=== PATIENT | male | born 1975 | race Two or more races ===

== ENCOUNTER → 2017-10-27 | Outpatient (CLI) | payer BC ==
--- NOTE | 2017-10-27 11:47 | XR ---
EXAMINATION TYPE: XR lumbar spine 2 or 3V DATE OF EXAM: 10/27/2017 COMPARISON: NONE HISTORY: Paresthesia, left leg numbness TECHNIQUE: Three-view lumbar spine FINDINGS: Minimal narrowing of the L5-S1 disc height is not excluded. Remaining disc heights are pres erved. Vertebral body heights are preserved. Alignment is normal. IMPRESSION: 1. Possible minimal degenerative disc change L5-S1.
== END | disposition home or self-care (01) ==
LOC: RADXRYALE 11:08
PROVIDERS: ATTEND Internal Medicine
DX: R20.2 Paresthesia of skin (principal)
CPT/HCPCS: 72100

== ENCOUNTER 2017-11-16 20:51 | Emergency (ER) | payer BC ==
[2017-11-16 20:59] VITALS: RESP 18
--- NOTE | 2017-11-16 21:19 | ED ---
Chest Pain HPI - General Chief Complaint: Chest Pain Stated Complaint: Chest Pain Time Seen by Provider: 11/16/17 21:17 Source: patient Mode of arrival: wheelchair Limitations: no limitations - History of Present Illness Initial Comments: This patient is a 42-year-old man who presents to be evaluated for chest pain. The patient states that he was trying to rest, he was lying down around 5:30 PM when he noticed a sensation in the left anterior axillary line that he described as feeling "like a stitch" or pain that comes on after a run. He states that it was there about half an hour and then he noticed that his left arm felt like it was "going to sleep." The patient states that he did take 2 of the baby aspirin and trying to rest but he wasn't feeling much better. After that he also started to feel a little bit dizzy. The patient does note that the chest pain was somewhat intermittent and it would come on for maybe up to an hour and then go away but it has recurred and is currently there, at a level of 3 out of 10. He has not noted any factors that seem to make it better or worse. Other than the symptoms, patient is not having anything else going on. He denies diaphoresis, dyspnea, palpitations, nausea or vomiting. Patient denies previous cardiac history or diabetes. He has not been a smoker. Patient 's father did have a heart attack but this was proximal 5 years ago when he was in his 60s. MD Complaint: chest pain Onset/Timin -: hour(s) Onset: during rest Pain Location: left chest Pain Radiation: none Severity: mild Severity scale (1-10): 3 Quality: other ("like a stitch") Consistency: intermittent Improves With: nothing Worsens With: nothing Other Symptoms: other (dizzy) Treatments Prior to Arrival: aspirin (162 mg) - Related Data Home Medications Medication Instructions Recorded Confirmed Aspirin EC [Ecotrin Low Dose] 162 mg PO DAILY 11/16/17 11/16/17 Atorvastatin [Lipitor] 20 mg PO DAILY 11/16/17 11/16/17 Calcium Polycarbophil [Fibercon] 1,250 mg PO DAILY 11/16/17 11/16/17 Enalapril/Hydrochlorothiazide 1 tab PO DAILY 11/16/17 11/16/17 [Enalapril-Hctz 10-25 mg Tablet] Levothyroxine Sodium [Synthroid] 75 mcg PO DAILY 11/16/17 11/16/17 Allergies Allergy/AdvReac Type Severity Reaction Status Date / Time No Known Allergies Allergy Verified 11/16/17 21:44 Review of Systems ROS Statement: Those systems with pertinent positive or pertinent negative responses have been documented in the HPI. ROS Other: All systems not noted in ROS Statement are negative. Constitutional: Denies: fever, chills, weakness Respiratory: Denies: cough, dyspnea Cardiovascular: Reports: as per HPI, chest pain. Denies: palpitations, orthopnea, edema, syncope Gastrointestinal: Denies: abdominal pain, nausea, vomiting Genitourinary: Denies: dysuria, hematuria Musculoskeletal: Denies: back pain Skin: Denies: rash Neurological: Reports: paresthesias (Left arm). Denies: headache, weakness, numbness Hematological/Lymphatic: Denies: easy bleeding EKG Findings - EKG Results: EKG: interpreted by JULIAN COATES, sinus rhythm (Rate approximate 79 bpm), normal axis, normal QRS, normal ST/T, no acute changes - SC, Pacemaker, Normal: Normal tracing: normal tracing Past Medical History Past Medical History: Hyperlipidemia, Hypertension, Sleep Apnea/CPAP/BIPAP, Thyroid Disorder History of Any Multi-Drug Resistant Organisms: None Reported Past Surgical History: Hernia Repair Past Psychological History: No Psychological Hx Reported Smoking Status: Never smoker Past Alcohol Use History: None Reported Past Drug Use History: None Reported General Exam Limitations: no limitations General appearance: alert, in no apparent distress Head exam: Present: atraumatic, normocephalic Eye exam: Present: normal appearance. Absent: scleral icterus, conjunctival injection ENT exam: Present: normal oropharynx Neck exam: Present: normal inspection Respiratory exam: Present: normal lung sounds bilaterally. Absent: respiratory distress, wheezes, rales, rhonchi, stridor, chest wall tenderness Cardiovascular Exam: Present: regular rate, normal rhythm, normal heart sounds. Absent: systolic murmur, diastolic murmur, rubs, gallop GI/Abdominal exam: Present: soft. Absent: distended, tenderness, guarding, rebound, rigid, mass, pulsatile mass Extremities exam: Present: normal inspection, normal capillary refill. Absent: pedal edema, calf tenderness Back exam: Present: normal inspection. Absent: CVA tenderness (R), CVA tenderness (L) Neurological exam: Present: alert Skin exam: Present: warm, dry, intact, normal color. Absent: rash Course Vital Signs 11/16/17 11/16/17 11/16/17 20:56 22:07 23:00 Temperature 98.8 F Pulse Rate 102 H 110 H 85 Respiratory 18 18 18 Rate Blood Pressure 143/99 128/68 118/81 O2 Sat by Pulse 97 98 98 Oximetry 11/17/17 02:06 Temperature 97.8 F Pulse Rate 66 Respiratory 18 Rate Blood Pressure 141/67 O2 Sat by Pulse 98 Oximetry Disposition Clinical Impression: Chest pain Disposition: HOME SELF-CARE Condition: Good Instructions: Chest Pain (ED) Is patient prescribed a controlled substance at d/c from ED?: No Referrals: Judy Garcia MD [Primary Care Provider] - 1-2 days
[2017-11-16 21:33] LABS: Basophils # (A) 0.1 k/uL (0-0.2); Basophils % (A) 1 %; Eosinophils # (A) 0.2 k/uL (0-0.7); Eosinophils % (A) 3 %; HCT 47.1 % (39.0-53.0); HGB 16.1 gm/dL (13.0-17.5); Lymphocytes # (A) 2.3 k/uL (1.0-4.8); Lymphocytes % (A) 29 %; MCHC 34.2 g/dL (31.0-37.0); MCV 84.8 fL (80.0-100.0); Mean Platelet Volume 6.6; Monocytes # (A) 0.6 k/uL (0-1.0); Monocytes % (A) 8 %; Neutrophils # (A) 4.7 k/uL (1.3-7.7); Neutrophils % (A) 58 %; Platelet Count 285 k/uL (150-450); RBC 5.56 m/uL (4.30-5.90); RDW 13.3 % (11.5-15.5); WBC 8.1 k/uL (3.8-10.6)
--- NOTE | 2017-11-16 21:44 | XR ---
EXAMINATION TYPE: XR chest 2V DATE OF EXAM: 11/16/2017 COMPARISON: NONE HISTORY: Chest pain TECHNIQUE: Frontal and lateral views of the chest are obtained. FINDINGS: Heart and mediastinum are normal. Lungs are clear. Diaphragm is normal. There are chest le ads. Bony thorax appears normal. IMPRESSION: Normal chest
[2017-11-16 21:45] LABS: ALT 45 U/L (21-72); AST 31 U/L (17-59); Alkaline Phosphatase 74 U/L (38-126); Anion Gap 18 mmol/L; Blood Urea Nitrogen 18 mg/dL (9-20); Calcium 9.9 mg/dL (8.4-10.2); Carbon Dioxide 27 mmol/L (22-30); Chloride 99 mmol/L (98-107); Glucose 90 mg/dL (74-99); Magnesium 2.1 mg/dL (1.6-2.3); Potassium 3.7 mmol/L (3.5-5.1); Sodium 144 mmol/L (137-145); Total Bilirubin 0.4 mg/dL (0.2-1.3); Total Protein 7.8 g/dL (6.3-8.2)
[2017-11-16 21:47] LABS: D-Dimer <0.17 mg/L FEU (<0.60); Partial Thromboplastin Time 25.6 sec (22.0-30.0); Prothrombin Time 10.1 sec (9.0-12.0)
[2017-11-16] MEDS ORDERED: ASPIRIN 81 MG PO STA (21:48)
[2017-11-16 21:58] LABS: Creatine Kinase 107 U/L (55-170)
[2017-11-16 22:09] LABS: Creatine Kinase MB 0.4 ng/mL (0.0-2.4); Troponin I <0.012 ng/mL (0.000-0.034)
[2017-11-17 02:07] VITALS: BP 141/67; PULSE 66; TEMP 97.8
== END 2017-11-17 02:08 | disposition home or self-care (01) ==
LOC: EC 20:51
DX: R07.9 Chest pain, unspecified (principal); R42 Dizziness and giddiness; E78.5 Hyperlipidemia, unspecified; I10 Essential (primary) hypertension; G47.30 Sleep apnea, unspecified; E07.9 Disorder of thyroid, unspecified; Z99.89 Dependence on other enabling machines and devices; Z79.82 Long term (current) use of aspirin; Z79.899 Other long term (current) drug therapy
CPT/HCPCS: 36415; 71046; 80053; 82550; 82553; 83735; 84484; 85025; 85379; 85610; 85730; 93005; 99285

== ENCOUNTER 2019-08-12 09:21 | Observation (INO) | payer BC ==
[2019-08-12] MEDS ORDERED: HEPARIN SODIUM,PORCINE 5,000 UNIT/ML 1 ML VIAL IV STA (09:33)
[2019-08-12] MEDS ORDERED: DILTIAZEM DRIP BOLUS FROM BAG 1 MG SOLN IV ONE (09:43)
[2019-08-12] MEDS ORDERED: HEPARIN SOD,PORK IN 0.45% NACL 25,000 UNIT in 0.45% NACL 1 250ML.BAG IV SCH (09:45)
--- NOTE | 2019-08-12 09:45 | ED ---
Arrhythmia/Palpitations HPI - General Source: patient, EMS, RN notes reviewed Mode of arrival: EMS Limitations: no limitations <Barrie Lacey - Last Filed: 08/12/19 10:53> <Crista Bee - Last Filed: 08/17/19 14:15> - General Chief Complaint: Arrhythmia/Palpitations Stated Complaint: AFIB Time Seen by Provider: 08/12/19 09:22 - History of Present Illness Initial Comments: This a 44-year-old male presents emergency department via EMS from urgent care chief complaint of A. fib. Patient states that he developed some palpitations and chest pressure yesterday into the night. Patient states that he does have h istory of hyperlipidemia and hypertension. Patient has no history of A. fib. Patient was given aspirin by urgent care. He states that he just feels his heart is racing feels very tired. Patient denies any current headache, blurred vision, back pain, abdominal pain. (Barrie Lacey) - Related Data Home Medications Medication Instructions Recorded Confirmed Aspirin EC [Ecotrin Low Dose] 162 mg PO HS 11/16/17 08/12/19 Levothyroxine Sodium [Synthroid] 75 mcg PO DAILY 11/16/17 08/12/19 Aspirin [Children's Aspirin] 364 mg PO ONCE PRN 08/12/19 08/12/19 Triamcinolone 0.1% Cream [Kenalog 1 applic TOPICAL BID PRN 08/12/19 08/12/19 0.1% Cream] Previous Rx's Medication Instructions Recorded Apixaban [Eliquis] 5 mg PO BID #60 tab 08/13/19 Atorvastatin [Lipitor] 40 mg PO DAILY #30 tab 08/13/19 Metoprolol Tartrate [Lopressor] 25 mg PO BID #60 tab 08/13/19 Allergies Allergy/AdvReac Type Severity Reaction Status Date / Time No Known Allergies Allergy Verified 08/12/19 12:56 Review of Systems ROS Other: All systems not noted in ROS Statement are negative. <Barrie Lacey - Last Filed: 08/12/19 10:53> ROS Other: All systems not noted in ROS Statement are negative. <Crista Bee - Last Filed: 08/17/19 14:15> ROS Statement: Those systems with pertinent positive or pertinent negative responses have been documented in the HPI. Past Medical History Past Medical History: Hyperlipidemia, Hypertension, Sleep Apnea/CPAP/BIPAP, Thyroid Disorder History of Any Multi-Drug Resistant Organisms: None Reported Past Surgical History: Hernia Repair Past Psychological History: No Psychological Hx Reported Smoking Status: Never smoker Past Alcohol Use History: None Reported Past Drug Use History: None Reported <Barrie Lacey - Last Filed: 08/12/19 10:53> General Exam Limitations: no limitations General appearance: alert, in no apparent distress Head exam: Present: atraumatic, normocephalic, normal inspection Eye exam: Present: normal appearance, PERRL, EOMI. Absent: scleral icterus, conjunctival injection, periorbital swelling ENT exam: Present: normal exam, normal oropharynx, mucous membranes moist Neck exam: Present: normal inspection. Absent: tenderness, meningismus, lymphadenopathy Respiratory exam: Present: normal lung sounds bilaterally. Absent: respiratory distress, wheezes, rales, rhonchi, stridor Cardiovascular Exam: Present: tachycardia, irregular rhythm, normal heart sounds. Absent: regular rate, normal rhythm, systolic murmur, diastolic murmur, rubs, gallop, clicks GI/Abdominal exam: Present: soft, normal bowel sounds. Absent: distended, tenderness, guarding, rebound, rigid Extremities exam: Absent: pedal edema Neurological exam: Present: alert, oriented X3, CN II-XII intact Skin exam: Present: warm, dry, intact, normal color. Absent: rash <Barrie Lacey M - Last Filed: 08/12/19 10:53> Course Vital Signs 08/12/19 08/12/19 08/12/19 09:27 09:37 10:06 Temperature 98.1 F 98.2 F Pulse Rate 156 H 101 H Pulse Rate [ 161 H Sitting Peanut Blancher] Respiratory 18 18 Rate Blood Pressure 129/105 128/88 Blood Pressure [Right Arm] O2 Sat by Pulse 98 95 Oximetry 08/12/19 08/12/19 08/12/19 10:44 11:30 11:41 Temperature 98.3 F 97.6 F 98.4 F Pulse Rate 95 98 Pulse Rate [ 130 H Sitting Peanut Blancher] Respiratory 18 18 18 Rate Blood Pressure 109/82 101/80 Blood Pressure 124/87 [Right Arm] O2 Sat by Pulse 100 98 Oximetry EKG Findings - EKG Comments: EKG Findings:: EKG performed and 9:25 A. fib with RVR rate of 133 QRS 82 QT/QTC 264/392 <Barrie Lacey - Last Filed: 08/12/19 10:53> Medical Decision Making - Lab Data Result diagrams: 08/12/19 09:34 08/12/19 09:34 <Barrie Lacey - Last Filed: 08/12/19 10:53> - Lab Data Result diagrams: 08/13/19 05:46 08/13/19 05:46 <Crista Bee - Last Filed: 08/17/19 14:15> - Medical Decision Making Patient was admitted to telemetry for A. fib RVR will have cardiology consult. Absent, EKG and chest x-ray were reviewed. (Barrie Lacey) I was available for consultation in the emergency department. The history and physical exam were done by the midlevel provider. I was consulted for this patients care. I reviewed the case with the midlevel provider and based on their presentation of the patient, I agree with the assessment, medical decision making and plan of care as documented. I evaluated the patient myself. He is resting comfortably on the cardizem gtt. I discussed the diagnosis, differential and treatment plan. Patient agreed to hospital admission with cardiology consult. He had no contraindications to heparin. The patient was admitted to [facility] and spoke with accepting doctor, Dr. Mcadams. Chart was dictated using [employer] dictation software. Attempts were made to correct any dictation errors however some typographical errors may persist. (Crista Bee) - Lab Data Lab Results 08/12/19 08/12/19 08/12/19 Range/Units 09:34 09:34 09:34 WBC 7.5 (3.8-10.6) k/uL RBC 5.39 (4.30-5.90) m/uL Hgb 15.6 (13.0-17.5) gm/dL Hct 46.6 (39.0-53.0) % MCV 86.4 (80.0-100.0) fL MCH 29.0 (25.0-35.0) pg MCHC 33.6 (31.0-37.0) g/dL RDW 13.2 (11.5-15.5) % Plt Count 290 (150-450) k/uL Neutrophils % 61 % Lymphocytes % 26 % Monocytes % 6 % Eosinophils % 4 % Basophils % 1 % Neutrophils # 4.6 (1.3-7.7) k/uL Lymphocytes # 2.0 (1.0-4.8) k/uL Monocytes # 0.5 (0-1.0) k/uL Eosinophils # 0.3 (0-0.7) k/uL Basophils # 0.1 (0-0.2) k/uL PT 10.6 (9.0-12.0) sec INR 1.0 (<1.2) APTT 26.4 (22.0-30.0) sec Sodium 140 (137-145) mmol/L Potassium 4.2 (3.5-5.1) mmol/L Chloride 106 (98-107) mmol/L Carbon Dioxide 27 (22-30) mmol/L Anion Gap 7 mmol/L BUN 21 H (9-20) mg/dL Creatinine 1.13 (0.66-1.25) mg/dL Est GFR (CKD-EPI)AfAm >90 (>60 ml/min/1.73 sqM) Est GFR (CKD-EPI)NonAf 79 (>60 ml/min/1.73 sqM) Glucose 99 (74-99) mg/dL Calcium 9.4 (8.4-10.2) mg/dL Magnesium 2.3 (1.6-2.3) mg/dL Total Bilirubin 0.6 (0.2-1.3) mg/dL AST 25 (17-59) U/L ALT 24 (4-49) U/L Alkaline Phosphatase 60 (38-126) U/L Troponin I (0.000-0.034) ng/mL NT-Pro-B Natriuret Pep pg/mL Total Protein 7.2 (6.3-8.2) g/dL Albumin 4.4 (3.5-5.0) g/dL TSH (0.465-4.680) mIU/L Free T4 (0.78-2.19) ng/dL 08/12/19 08/12/19 08/12/19 Range/Units 09:34 09:34 09:34 WBC (3.8-10.6) k/uL RBC (4.30-5.90) m/uL Hgb (13.0-17.5) gm/dL Hct (39.0-53.0) % MCV (80.0-100.0) fL MCH (25.0-35.0) pg MCHC (31.0-37.0) g/dL RDW (11.5-15.5) % Plt Count (150-450) k/uL Neutrophils % % Lymphocytes % % Monocytes % % Eosinophils % % Basophils % % Neutrophils # (1.3-7.7) k/uL Lymphocytes # (1.0-4.8) k/uL Monocytes # (0-1.0) k/uL Eosinophils # (0-0.7) k/uL Basophils # (0-0.2) k/uL PT (9.0-12.0) sec INR (<1.2) APTT (22.0-30.0) sec Sodium (137-145) mmol/L Potassium (3.5-5.1) mmol/L Chloride (98-107) mmol/L Carbon Dioxide (22-30) mmol/L Anion Gap mmol/L BUN (9-20) mg/dL Creatinine (0.66-1.25) mg/dL Est GFR (CKD-EPI)AfAm (>60 ml/min/1.73 sqM) Est GFR (CKD-EPI)NonAf (>60 ml/min/1.73 sqM) Glucose (74-99) mg/dL Calcium (8.4-10.2) mg/dL Magnesium (1.6-2.3) mg/dL Total Bilirubin (0.2-1.3) mg/dL AST (17-59) U/L ALT (4-49) U/L Alkaline Phosphatase (38-126) U/L Troponin I <0.012 (0.000-0.034) ng/mL NT-Pro-B Natriuret Pep 686 pg/mL Total Protein (6.3-8.2) g/dL Albumin (3.5-5.0) g/dL TSH 5.630 H (0.465-4.680) mIU/L Free T4 1.16 (0.78-2.19) ng/dL Critical Care Time Critical Care Time: Yes Total Critical Care Time: 35 <Barrie Lacey - Last Filed: 08/12/19 10:53> Critical Care Time: Total 35 minutes of critical care time used initially evaluated patient, reviewed past medical history, discussed with EMS and patient. Labs EKG and chest x-ray ordered. Patient's found to be in A. fib with RVR. Patient was started on Cardizem, heparin. Patient's case discussed with admitting physician. Patient will be admitted with cardiology consult. (Barrie Lacey) Disposition <Barrie Lacey - Last Filed: 08/12/19 10:53> <Crista Bee - Last Filed: 08/17/19 14:15> Clinical Impression: Atrial fibrillation with RVR, New onset a-fib Disposition: ADMITTED IP TO THIS HOSP Condition: Fair
[2019-08-12 09:49] LABS: Basophils # (A) 0.1 k/uL (0-0.2); Basophils % (A) 1 %; Eosinophils # (A) 0.3 k/uL (0-0.7); Eosinophils % (A) 4 %; HCT 46.6 % (39.0-53.0); HGB 15.6 gm/dL (13.0-17.5); Lymphocytes % (A) 26 %; MCHC 33.6 g/dL (31.0-37.0); MCV 86.4 fL (80.0-100.0); Monocytes # (A) 0.5 k/uL (0-1.0); Monocytes % (A) 6 %; Neutrophils # (A) 4.6 k/uL (1.3-7.7); Neutrophils % (A) 61 %; Platelet Count 290 k/uL (150-450); RBC 5.39 m/uL (4.30-5.90); RDW 13.2 % (11.5-15.5); WBC 7.5 k/uL (3.8-10.6)
--- NOTE | 2019-08-12 09:59 | XR ---
EXAMINATION TYPE: XR chest 2V DATE OF EXAM: 08/12/2019 COMPARISON: Chest x-ray November 16, 2017 HISTORY: History of atrial fibrillation with chest palpitations. TECHNIQUE: Frontal and lateral views of the chest are obtained. FINDINGS: Overlying EKG leads are redemonstrated. There is no focal air space opacity, pleural effusi on, or pneumothorax seen. The cardiac silhouette size remains within normal limits. The osseous st ructures are intact. IMPRESSION: No acute cardiopulmonary process. No significant change from prior
[2019-08-12 10:00] LABS: Partial Thromboplastin Time 26.4 sec (22.0-30.0); Prothrombin Time 10.6 sec (9.0-12.0)
[2019-08-12] MEDS: DILTIAZEM 125 MG in SODIUM CHLORIDE 0.9% 100 ML IV SCH (10:05)
[2019-08-12 10:07] LABS: ALT 24 U/L (4-49); AST 25 U/L (17-59); African American GFR (CKD) >90 (>60 ml/min/1.73 sqM); Albumin 4.4 g/dL (3.5-5.0); Alkaline Phosphatase 60 U/L (38-126); Anion Gap 7 mmol/L; Blood Urea Nitrogen 21 mg/dL (9-20); Calcium 9.4 mg/dL (8.4-10.2); Carbon Dioxide 27 mmol/L (22-30); Chloride 106 mmol/L (98-107); Glucose 99 mg/dL (74-99); Magnesium 2.3 mg/dL (1.6-2.3); Non-African American GFR(CKD) 79 (>60 ml/min/1.73 sqM); Potassium 4.2 mmol/L (3.5-5.1); Sodium 140 mmol/L (137-145); Total Bilirubin 0.6 mg/dL (0.2-1.3); Total Protein 7.2 g/dL (6.3-8.2)
[2019-08-12] MEDS ORDERED: NITROGLYCERIN SL TABS 0.4 MG TAB SUBLINGUAL PRN (10:56)
--- NOTE | 2019-08-12 13:10 | P.CRDCN ---
History of Present Illness Consult date: 08/12/19 Requesting physician: Gricelda Perales Reason for Consult (text): new onset atrial fibrillation with RVR Chief complaint: palpitations, chest heaviness History of present illness: This is a pleasant 44-year-old gentleman with past medical history of hypertension, hyperlipidemia, sleep apnea for which he uses CPAP and hypothyroidism. He is a nonsmoker and nondrinker. Does consume about 2 glasses of tea daily. Presented to urgent care with complaints of ongoing palpitations since last night with complaints of chest heaviness. Upon presentation he was found to have atrial fibrillation with rapid ventricular response and was referred to the emergency department. EKG on admission showed atrial fibrillation with heart rate of 133. Patient denies previous history of atrial fibrillation but has had palpitations in the past that lasted longer than seconds at a time. Chest x-ray on admission showed no acute cardiopulmonary process, no significant change from prior. Coronary the patient he did have cardiac workup done a few years back with stress testing which was normal. He is unsure of which doctor he followed with at that time. He has a family history of CAD but no history of premature CAD. Labs on admission showed a normal CBC, normal electrolytes, BUN of 21, creatinine 1.13, troponin negative 1 and an NT proBNP of 686. At the time of My Examination, Patient Denies Compl aints of chest heaviness. He denies complaints of dizziness, lightheadedness, shortness of breath, orthopnea, PND or edema. He's had no syncope or near syncope. Past Medical History Past Medical History: Hyperlipidemia, Hypertension, Sleep Apnea/CPAP/BIPAP, Thyroid Disorder History of Any Multi-Drug Resistant Organisms: None Reported Past Surgical History: Hernia Repair Past Anesthesia/Blood Transfusion Reactions: No Reported Reaction, Postoperative Nausea & Vomiting (PONV) Additional Past Anesthesia/Blood Transfusion Reaction / Comment(s): . Past Psychological History: No Psychological Hx Reported Smoking Status: Never smoker Past Alcohol Use History: None Reported Past Drug Use History: None Reported - Past Family History Father Family Medical History: Coronary Artery Disease (CAD), Diabetes Mellitus Additional Family Medical History / Comment(s): cabg Medications and Allergies Home Medications Medication Instructions Recorded Confirmed Type Aspirin EC [Ecotrin Low Dose] 162 mg PO HS 11/16/17 08/12/19 History Atorvastatin [Lipitor] 20 mg PO DAILY 11/16/17 08/12/19 History Enalapril/Hydrochlorothiazide 1 tab PO DAILY 11/16/17 08/12/19 History [Enalapril-Hctz 10-25 mg Tablet] Levothyroxine Sodium [Synthroid] 75 mcg PO DAILY 11/16/17 08/12/19 History Aspirin [Children's Aspirin] 364 mg PO ONCE PRN 08/12/19 08/12/19 History Triamcinolone 0.1% Cream [Kenalog 1 applic TOPICAL BID PRN 08/12/19 08/12/19 History 0.1% Cream] Allergies Allergy/AdvReac Type Severity Reaction Status Date / Time No Known Allergies Allergy Verified 08/12/19 12:56 Physical Exam Vitals: Vital Signs Temp Pulse Pulse Resp BP BP Pulse Ox 08/12/19 11:41 98.4 F 98 18 101/80 98 08/12/19 11:30 97.6 F 130 H 18 124/87 08/12/19 10:44 98.3 F 95 18 109/82 100 08/12/19 10:06 98.2 F 101 H 18 128/88 95 08/12/19 09:37 161 H 08/12/19 09:27 98.1 F 156 H 18 129/105 98 Intake and Output 08/11/19 08/12/19 08/12/19 22:59 06:59 14:59 Intake Total 6.333 Balance 6.333 Intake: Intake, IV Titration 6.333 Amount Diltiazem 125 mg In 6.333 Sodium Chloride 0.9% 100 ml @ 10 MG/HR 10 mls/hr IV .[id number] [facility] Rx#: [id number] Other: Weight 93.2 kg PHYSICAL EXAMINATION: HEENT: Head is atraumatic, normocephalic. Pupils equal, round. Neck is supple. There is no elevated jugular venous pressure. HEART EXAMINATION: Heart sounds irregularly irregular, S1 and S2 normal. No m urmur or gallop heard. CHEST EXAMINATION: Lungs are clear to auscultation and precussion. No chest wall tenderness is noted on palpation or with deep breathing. ABDOMEN: Soft, nontender. Bowel sounds are heard. No organomegaly noted. EXTREMITIES: 2+ peripheral pulses with no evidence of peripheral edema and no calf tenderness noted. NEUROLOGIC patient is awake, alert and oriented x3. . Results 08/12/19 09:34 08/12/19 09:34 Cardiac Enzymes 08/12/19 08/12/19 Range/Units 09:34 09:34 AST 25 (17-59) U/L Troponin I <0.012 (0.000-0.034) ng/mL Coagulation 08/12/19 Range/Units 09:34 PT 10.6 (9.0-12.0) sec APTT 26.4 (22.0-30.0) sec CBC 08/12/19 Range/Units 09:34 WBC 7.5 (3.8-10.6) k/uL RBC 5.39 (4.30-5.90) m/uL Hgb 15.6 (13.0-17.5) gm/dL Hct 46.6 (39.0-53.0) % Plt Count 290 (150-450) k/uL Comprehensive Metabolic Panel 08/12/19 Range/Units 09:34 Sodium 140 (137-145) mmol/L Potassium 4.2 (3.5-5.1) mmol/L Chloride 106 (98-107) mmol/L Carbon Dioxide 27 (22-30) mmol/L BUN 21 H (9-20) mg/dL Creatinine 1.13 (0.66-1.25) mg/dL Glucose 99 (74-99) mg/dL Calcium 9.4 (8.4-10.2) mg/dL AST 25 (17-59) U/L ALT 24 (4-49) U/L Alkaline Phosphatase 60 (38-126) U/L Total Protein 7.2 (6.3-8.2) g/dL Albumin 4.4 (3.5-5.0) g/dL Current Medications Generic Name Dose Route Start Last Admin Trade Name Freq PRN Reason Stop Dose Admin Aspirin 325 mg 08/13/19 09:00 Aspirin PO DAILY [facility] Heparin Sodium/Sodium Chloride 250 mls @ 9.995 mls/hr 08/12/19 09:45 08/12/19 10:02 25,000 unit/ Sodium Chloride IV 11.3 units/kg/hr .Q24H MARÍA 9.995 mls/hr Administration Protocol 11.3 UNITS/KG/HR Diltiazem HCl 125 mg/ Sodium 125 mls @ 10 mls/hr 08/12/19 09:45 08/12/19 10:43 Chloride IV 5 mg/hr .[id number] MARÍA 5 mls/hr Infusion 10 MG/HR Nitroglycerin 0.4 mg 08/12/19 10:56 Nitrostat SUBLINGUAL Q5M PRN Chest Pain Intake and Output 08/11/19 08/12/19 08/12/19 22:59 06:59 14:59 Intake Total 6.333 Balance 6.333 Intake: Intake, IV Titration 6.333 Amount Diltiazem 125 mg In 6.333 Sodium Chloride 0.9% 100 ml @ 10 MG/HR 10 mls/hr IV .[id number] [facility] Rx#: [id number] Other: Weight 93.2 kg Patient Weight 08/13/19 07:59 Weight 93.2 kg 08/12/19 09:34 08/12/19 09:34 EKG Interpretations (text) Atrial fibrillation with rapid ventricular response with occasional PVC Assessment and Plan Assessment: #1 new onset atrial fibrillation with rapid ventricular response, likely paroxysmal #2 hypertension #3 hypothyroidism #4 hyperlipidemia #5 sleep apnea Plan: From cardiology perspective, we'll obtain a 2-D echo with Doppler. Will check TSH with reflex T4. We will add beta caridad and attempt to wean Cardizem drip. We'll continue to follow the patient. Further recommendations accordingly. COMMUNITY PHARMACIST note has been reviewed, I agree with a documented findings and plan of care. Patient was seen and examined.
[2019-08-12] MEDS: METOPROLOL TARTRATE 25 MG TAB PO SCH (14:02)
[2019-08-12 14:30] LABS: T4, Free (Free Thyroxine) 1.16 ng/dL (0.78-2.19)
[2019-08-12] MEDS ORDERED: FLECAINIDE 50 MG TAB PO STA (15:13)
[2019-08-12] MEDS ORDERED: ASPIRIN 81 MG PO PRN (15:41)
--- NOTE | 2019-08-12 15:45 | P.HPIM ---
History of Present Illness H&P Date: 08/12/19 Chief Complaint: Chest pain, palpitations 44-year-old gentleman with past medical history of hypertension, hyperlipidemia, sleep apnea for which he uses CPAP and hypothyroidism. He is a nonsmoker and nondrinker. Does consume about 2 glasses of tea daily. Presented to urgent care with complaints of ongoing palpitations since last night with complaints of chest heaviness. Upon presentation he was found to have atrial fibrillation with rapid ventricular response and was referred to the emergency department. EKG on admission showed atrial fibrillation with heart rate of 133. Patient denies previous history of atrial fibrillation but has had palpitations in the past that lasted longer than seconds at a time. Chest x-ray on admission showed no acute cardiopulmonary process, no significant change from prior. Coronary the patient he did have cardiac workup done a few years back with stress testing which was normal. He is unsure of which doctor he followed with at that time. He has a family history of CAD but no history of premature CAD. Labs on admission showed a normal CBC, normal electrolytes, BUN of 21, creatinine 1.13, troponin negative 1 and an NT proBNP of 686. At the time of My Examination, Patient Denies Complaints of chest heaviness. He denies complaints of dizziness, lightheadedness, shortness of breath, orthopnea, PND or edema. Review of Systems REVIEW OF SYSTEMS: CONSTITUTIONAL: No fever, no malaise, no fatigue. HEENT: No recent visual problems or hearing problems. Denied any sore throat. CARDIOVASCULAR: Chest pain, no syncope. PULMONARY: No shortness of breath, no cough, no hemoptysis. GASTROINTESTINAL: No diarrhea, no nausea, no vomiting, no abdominal pain. NEUROLOGICAL: No headaches, no weakness, no numbness. HEMATOLOGICAL: Denies any bleeding or petechiae. GENITOURINARY: Denies any burning micturition, frequency, or urgency. MUSCULOSKELETAL/RHEUMATOLOGICAL: Denies any joint pain, swelling, or any muscle pain. ENDOCRINE: Denies any polyuria or polydipsia. The rest of the 14-point review of systems is negative. Past Medical History Past Medical History: Hyperlipidemia, Hypertension, Sleep Apnea/CPAP/BIPAP, Thyroid Disorder History of Any Multi-Drug Resistant Organisms: None Reported Past Surgical History: Hernia Repair Past Anesthesia/Blood Transfusion Reactions: No Reported Reaction, Postoperative Nausea & Vomiting (PONV) Additional Past Anesthesia/Blood Transfusion Reaction / Comment(s): . Past Psychological History: No Psychological Hx Reported Smoking Status: Never smoker Past Alcohol Use History: None Reported Past Drug Use History: None Reported - Past Family History Father Family Medical History: Coronary Artery Disease (CAD), Diabetes Mellitus Additional Family Medical History / Comment(s): cabg Medications and Allergies Home Medications Medication Instructions Recorded Confirmed Type Aspirin EC [Ecotrin Low Dose] 162 mg PO HS 11/16/17 08/12/19 History Atorvastatin [Lipitor] 20 mg PO DAILY 11/16/17 08/12/19 History Enalapril/Hydrochlorothiazide 1 tab PO DAILY 11/16/17 08/12/19 History [Enalapril-Hctz 10-25 mg Tablet] Levothyroxine Sodium [Synthroid] 75 mcg PO DAILY 11/16/17 08/12/19 History Aspirin [Children's Aspirin] 364 mg PO ONCE PRN 08/12/19 08/12/19 History Triamcinolone 0.1% Cream [Kenalog 1 applic TOPICAL BID PRN 08/12/19 08/12/19 History 0.1% Cream] Allergies Allergy/AdvReac Type Severity Reaction Status Date / Time No Known Allergies Allergy Verified 08/12/19 12:56 Physical Exam Vitals: Vital Signs Temp Pulse Pulse Resp BP BP Pulse Ox 08/12/19 11:41 98.4 F 98 18 101/80 98 08/12/19 11:30 97.6 F 130 H 18 124/87 08/12/19 10:44 98.3 F 95 18 109/82 100 08/12/19 10:06 98.2 F 101 H 18 128/88 95 08/12/19 09:37 161 H 08/12/19 09:27 98.1 F 156 H 18 129/105 98 Intake and Output 08/11/19 08/12/19 08/12/19 22:59 06:59 14:59 Intake Total 366.333 Balance 366.333 Intake: Intake, IV Titration 6.333 Amount Diltiazem 125 mg In 6.333 Sodium Chloride 0.9% 100 ml @ 10 MG/HR 10 mls/hr IV .[id number] [facility] Rx#: [id number] Oral 360 Other: Weight 93.2 kg PHYSICAL EXAMINATION: GENERAL: The patient is alert and oriented x3, not in any acute distress. Well developed, well nourished. HEENT: Pupils are round and equally reacting to light. EOMI. No scleral icterus. No conjunctival pallor. Normocephalic, atraumatic. No pharyngeal erythema. No thyromegaly. CARDIOVASCULAR: Irregularly irregular S1 and S2 present. No murmurs, rubs, or gallops. PULMONARY: Chest is clear to auscultation, no wheezing or crackles. ABDOMEN: Soft, nontender, nondistended, normoactive bowel sounds. No palpable organomegaly. MUSCULOSKELETAL: No joint swelling or deformity. EXTREMITIES: No cyanosis, clubbing, or pedal edema. NEUROLOGICAL: Gross neurological examination did not reveal any focal deficits. SKIN: No rashes. Results CBC & Chem 7: 08/12/19 09:34 08/12/19 09:34 Labs: Abnormal Lab Results - Last 24 Hours (Table) 08/12/19 08/12/19 Range/Units 09:34 09:34 BUN 21 H (9-20) mg/dL TSH 5.630 H (0.465-4.680) mIU/L Assessment and Plan Assessment: 1. New onset atrial fibrillation with RVR - Patient is started on IV heparin and Cardizem drip; cardiology is following and planning to control heart rate on oral beta blockers and using Cardizem drip of; TSH and free T4 is ordered; order 2-D echo 2. Hypertension; metoprolol 25 mg twice a day; we'll hold enalapril/hydroch lorothiazide to insure stable renal function 3. Hyperlipidemia; Lipitor 20 mg by mouth daily at bedtime 4. Hypothyroidism; levothyroxine 75 MCG daily 5. Mild renal injury; we will hold off on hydrochlorothiazide/enalapril and monitor renal function and electrolytes closely DVT prophylaxis; systemic anticoagulation with heparin CODE STATUS; full code
--- NOTE | 2019-08-12 16:45 | ECHOF ---
Referral Reason:afib MEASUREMENTS -------- HEIGHT: 167.6 cm WEIGHT: 88.5 kg BP: 101/80 RVIDd: 3.0 cm (< 3.3) IVSd: 1.2 cm (0.6 - 1.1) LVIDd: 4.1 cm (3.9 - 5.3) LVPWd: 1.2 cm (0.6 - 1.1) IVSs: 1.7 cm LVIDs: 2.4 cm LVPWs: 1.7 cm LA Diam: 3.6 cm (2.7 - 3.8) LAESV Index (A-L): 21.93 ml/m Ao Diam: 3.4 cm (2.0 - 3.7) AV Cusp: 1.6 cm (1.5 - 2.6) MV EXCURSION: 19.197 mm (> 18.000) MV EF SLOPE: 406 mm/s (70 - 150) EPSS: 0.4 cm FINDINGS -------- Atrial fibrillation. This was a technically good study. The left ventricular size is normal. There is borderline concentric left ventricular hypertrophy. Overall left ventricular systolic function is normal with, an EF between 55 - 60 %. The right ventricle is normal in size. Normal LA size by volume 22+/-6 ml/m2. The right atrial size is normal. Interatrial and interventricular septum intact. The aortic valve is trileaflet, and appears structurally normal. No aortic stenosis or regurgitation. The mitral valve is normal. Mild mitral regurgitation is present. The tricuspid valve appears structurally normal. There is no pulmonic regurgitation present. The aortic root size is normal. Normal inferior vena cava with normal inspiratory collapse consistent with estimated right atrial pre ssure of 5 mmHg. There is no pericardial effusion. CONCLUSIONS -------- 1. Atrial fibrillation. 2. This was a technically good study. 3. The left ventricular size is normal. 4. There is borderline concentric left ventricular hypertrophy. 5. Overall left ventricular systolic function is normal with, an EF between 55 - 60 %. 6. Normal LA size by volume 22+/-6 ml/m2. 7. The aortic valve is trileaflet, and appears structurally normal. No aortic stenosis or regurgitati on. 8. Mild mitral regurgitation is present. 9. The tricuspid valve appears structurally normal. 10. There is no pulmonic regurgitation present. 11. Normal inferior vena cava with normal inspiratory collapse consistent with estimated right atrial pressure of 5 mmHg. 12. There is no pericardial effusion. SU[employer]FACE [employer]UGMENT[employer] OPERATOR: Elizabeth Weir RDCS
[2019-08-12] MEDS: APIXABAN 5 MG TAB PO SCH (20:52)
[2019-08-13 06:03] VITALS: TEMP 98.2
[2019-08-13 06:11] LABS: Basophils # (A) 0.1 k/uL (0-0.2); Basophils % (A) 1 %; Eosinophils # (A) 0.2 k/uL (0-0.7); Eosinophils % (A) 4 %; HCT 45.7 % (39.0-53.0); HGB 14.6 gm/dL (13.0-17.5); Lymphocytes # (A) 2.1 k/uL (1.0-4.8); Lymphocytes % (A) 33 %; MCV 87.4 fL (80.0-100.0); Monocytes # (A) 0.4 k/uL (0-1.0); Monocytes % (A) 7 %; Neutrophils # (A) 3.4 k/uL (1.3-7.7); Neutrophils % (A) 54 %; Platelet Count 255 k/uL (150-450); RBC 5.23 m/uL (4.30-5.90); RDW 13.2 % (11.5-15.5); WBC 6.4 k/uL (3.8-10.6)
[2019-08-13 06:28] LABS: Calcium 9.1 mg/dL (8.4-10.2); Potassium 4.1 mmol/L (3.5-5.1)
[2019-08-13] MEDS ORDERED: LEVOTHYROXINE 75 MCG TAB PO SCH (06:30)
[2019-08-13] MEDS: METOPROLOL TARTRATE 25 MG TAB PO SCH ×2 (07:40→10:04)
[2019-08-13] MEDS: DILTIAZEM 125 MG in SODIUM CHLORIDE 0.9% 100 ML IV SCH ×2 (07:41→12:03)
[2019-08-13] MEDS ORDERED: ASPIRIN 325 MG TAB PO SCH (09:00)
[2019-08-13] MEDS ORDERED: ATORVASTATIN 20 MG TAB PO SCH (09:00)
[2019-08-13] MEDS: APIXABAN 5 MG TAB PO SCH (10:04)
--- NOTE | 2019-08-13 12:04 | P.PN ---
Subjective This is a pleasant 44-year-old male past medical history significant for hypertension, dyslipidemia, sleep apnea and hypothyroidism. He is seen and examined sitting up in the room in no acute distress. He converted to sinus mechanism last evening after being given a dose of flecainide 300 mg times one. Overall he states he feels much better. He denies chest pain, shortness of breath, dizziness or palpitations. Blood pressure 129/82 heart rate 82 afebrile maintaining oxygen saturation on room air. Echocardiogram obtained reveals preserved LV systolic function with ejection fraction 55-60%. Currently maintained on Eliquis 5 mg twice a day, Lopressor 25 mg twice a day and atorvastatin 20 mg daily. Laboratory data reviewed, CBC unremarkable, sodium 139, potassium 4.1, creatinine 1.15, LDL 138 and triglycerides 280. GENERAL: Well-appearing, well-nourished and in no acute distress. NECK: Supple without JVD or thyromegaly. LUNGS: Breath sounds clear to auscultation bilaterally. Respiration equal and unlabored. No wheezes, rales or rhonchi. HEART: Regular rate and rhythm without murmurs, rubs or gallops. S1 and S2 hear d. EXTREMITIES: Normal range of motion, no edema. No clubbing or cyanosis. Peripheral pulses intact. ASSESSMENT New onset paroxysmal atrial fibrillation. Has converted to sinus mechanism. Hypertension Dyslipidemia Obstructive sleep apnea Obesity, BMI 33 PLAN Discussed with the patient in great detail the rationale for long-term anticoagulation and he is in agreement. Follow-up in the office in [address] Carvajal. Hold enalapril on discharge. Further recommendations for blood pressure management will be made as an outpatient. Increase atorvastatin to 40 mg daily. Nurse Practitioner note has been reviewed, I agree with a documented findings and plan of care. Patient was seen and examined. Objective - Vital Signs Vital signs: Vital Signs Temp 98.2 F 08/13/19 04:00 Pulse 82 08/13/19 07:58 Resp 14 08/13/19 07:58 BP 129/82 08/13/19 07:58 Pulse Ox 94 L 08/13/19 07:58 Intake & Output 08/12/19 08/13/19 08/13/19 17:59 06:59 18:59 Intake Total Output Total Balance Weight Intake: Intake, IV Titration Amount Diltiazem 125 mg In Sodium Chloride 0.9% 100 ml @ 10 MG/HR 10 mls/hr IV .[id number] REPLACED BY [facility] Rx#: [id number] Oral Output: Urine - Labs CBC & Chem 7: 08/13/19 05:46 08/13/19 05:46 Labs: Abnormal Lab Results - Last 24 Hours (Table) 08/12/19 08/12/19 08/13/19 Range/Units 09:34 17:17 05:46 APTT 45.2 H (22.0-30.0) sec Triglycerides 280 H (<150) mg/dL Cholesterol 226 H (<200) mg/dL LDL Cholesterol, Calc 138 H (0-99) mg/dL HDL Cholesterol 32 L (40-60) mg/dL TSH 5.630 H (0.465-4.680) mIU/L
[2019-08-13 13:12] VITALS: BP 120/78; PULSE 69; RESP 19
[2019-08-14] MEDS ORDERED: ATORVASTATIN 40 MG TAB PO SCH (09:00)
== END 2019-08-13 17:20 | disposition home or self-care (01) ==
LOC: EC 09:21 → 3SCARD 11:16
PROVIDERS: ADMIT Hospitalist; ATTEND Hospitalist
DX: I48.0 Paroxysmal atrial fibrillation (principal); I10 Essential (primary) hypertension; E78.5 Hyperlipidemia, unspecified; E03.9 Hypothyroidism, unspecified; N17.9 Acute kidney failure, unspecified; G47.33 Obstructive sleep apnea (adult) (pediatric); I34.0 Nonrheumatic mitral (valve) insufficiency; E66.9 Obesity, unspecified; Z68.33 Body mass index [BMI] 33.0-33.9, adult; Z79.82 Long term (current) use of aspirin; Z79.890 Hormone replacement therapy; Z79.52 Long term (current) use of systemic steroids; Z99.89 Dependence on other enabling machines and devices; Z98.890 Other specified postprocedural states; Z91.89 Other specified personal risk factors, not elsewhere classified; Z82.49 Family history of ischemic heart disease and other diseases of the circulatory system; Z83.3 Family history of diabetes mellitus
CPT/HCPCS: 93005 ×3; 96376; 96365; 96368; 96366; 99291; 36415; 93306; 84439; 83880; 80061; 80053; 80048; 84443; 83735; 84484; 85025 ×2; 85610; 85730 ×2; 71046; G0378 ×2; J1644 ×2

== ENCOUNTER 2020-10-25 15:35 | Inpatient (IN) | payer BC ==
[2020-10-25] MEDS ORDERED: SODIUM CHLORIDE 0.9% 1,000 ML IV ONE (16:57)
[2020-10-25 17:19] LABS: Basophils % (A) 1 %; Eosinophils # (A) 0.3 k/uL (0-0.7); Eosinophils % (A) 4 %; HCT 47.5 % (39.0-53.0); HGB 16.1 gm/dL (13.0-17.5); Lymphocytes # (A) 1.7 k/uL (1.0-4.8); Lymphocytes % (A) 22 %; MCH 29.8 pg (25.0-35.0); MCV 87.6 fL (80.0-100.0); Mean Platelet Volume 6.9; Monocytes # (A) 0.6 k/uL (0-1.0); Monocytes % (A) 8 %; Neutrophils # (A) 4.9 k/uL (1.3-7.7); Neutrophils % (A) 64 %; Platelet Count 289 k/uL (150-450); RBC 5.42 m/uL (4.30-5.90); RDW 12.8 % (11.5-15.5); WBC 7.6 k/uL (3.8-10.6)
[2020-10-25] MEDS ORDERED: DILTIAZEM DRIP BOLUS FROM BAG 1 MG SOLN IV ONE (17:26)
[2020-10-25 17:28] LABS: Albumin 4.8 g/dL (3.5-5.0); Calcium 9.7 mg/dL (8.4-10.2); Magnesium 2.3 mg/dL (1.6-2.3); Potassium 4.3 mmol/L (3.5-5.1); Total Bilirubin 0.3 mg/dL (0.2-1.3); Total Protein 7.3 g/dL (6.3-8.2)
[2020-10-25 17:30] LABS: Partial Thromboplastin Time 27.3 sec (22.0-30.0); Prothrombin Time 10.5 sec (9.0-12.0)
[2020-10-25] MEDS ORDERED: DILTIAZEM 125 MG in SODIUM CHLORIDE 0.9% 100 ML IV SCH (17:30)
--- NOTE | 2020-10-25 17:30 | XR ---
EXAMINATION TYPE: XR chest 2V DATE OF EXAM: 10/25/2020 COMPARISON: 08/12/2019 HISTORY: Chest pain. TECHNIQUE: Frontal and lateral views of the chest are obtained. FINDINGS: There is no focal air space opacity, pleural effusion, or pneumothorax seen. The cardiac silhouette size is within normal limits. The osseous structures are intact. IMPRESSION: No acute cardiopulmonary process.
[2020-10-25] MEDS ORDERED: ACETAMINOPHEN TAB 325 MG TAB PO PRN (18:15)
[2020-10-25] MEDS ORDERED: NALOXONE 0.4 MG/ML 1 ML VIAL IV PRN (18:15)
--- NOTE | 2020-10-25 18:20 | ED ---
General Adult HPI - General Chief complaint: Arrhythmia/Palpitations Stated complaint: Poss AFib Time Seen by Provider: 10/25/20 16:55 Source: patient, RN notes reviewed, old records reviewed Mode of arrival: ambulatory Limitations: no limitations - History of Present Illness Initial comments: 45-year-old male presenting for evaluation of left-sided neck pain and left arm pain and palpitations. Patient has history of atrial fibrillation. He is on me toprolol and anticoagulant. He has been compliant with his medication. He states he got his second coronavirus vaccine yesterday and states that today he was running up the stairs when he began having symptoms. This was several hours prior to arrival. He has no central chest pain. No fever. No dyspnea. - Related Data Home Medications Medication Instructions Recorded Confirmed Aspirin EC [Ecotrin Low Dose] 162 mg PO HS 11/16/17 08/12/19 Levothyroxine Sodium [Synthroid] 75 mcg PO DAILY 11/16/17 08/12/19 Aspirin [Children's Aspirin] 364 mg PO ONCE PRN 08/12/19 08/12/19 Triamcinolone 0.1% Cream [Kenalog 1 applic TOPICAL BID PRN 08/12/19 08/12/19 0.1% Cream] Previous Rx's Medication Instructions Recorded Apixaban [Eliquis] 5 mg PO BID #60 tab 08/13/19 Atorvastatin [Lipitor] 40 mg PO DAILY #30 tab 08/13/19 Metoprolol Tartrate [Lopressor] 25 mg PO BID #60 tab 08/13/19 Allergies Allergy/AdvReac Type Severity Reaction Status Date / Time No Known Allergies Allergy Verified 08/12/19 12:56 Review of Systems ROS Statement: Those systems with pertinent positive or pertinent negative responses have been documented in the HPI. ROS Other: All systems not noted in ROS Statement are negative. Past Medical History Past Medical History: Hyperlipidemia, Hypertension, Sleep Apnea/CPAP/BIPAP, Thyroid Disorder Additional Past Medical History / Comment(s): Afib History of Any Multi-Drug Resistant Organisms: None Reported Past Surgical History: Hernia Repair Past Anesthesia/Blood Transfusion Reactions: No Reported Reaction, Postoperative Nausea & Vomiting (PONV) Additional Past Anesthesia/Blood Transfusion Reaction / Comment(s): . Past Psychological History: No Psychological Hx Reported Smoking Status: Never smoker Past Alcohol Use History: None Reported Past Drug Use History: None Reported - Past Family History Father Family Medical History: Coronary Artery Disease (CAD), Diabetes Mellitus Additional Family Medical History / Comment(s): cabg General Exam Limitations: no limitations General appearance: alert, in no apparent distress Head exam: Present: atraumatic, normocephalic Eye exam: Present: normal appearance, PERRL ENT exam: Present: mucous membranes dry Neck exam: Present: normal inspection. Absent: tenderness, meningismus Respiratory exam: Present: normal lung sounds bilaterally. Absent: respiratory distress, wheezes Cardiovascular Exam: Present: tachycardia, irregular rhythm GI/Abdominal exam: Present: soft. Absent: distended, tenderness, guarding Extremities exam: Present: normal inspection, normal capillary refill. Absent: pedal edema, calf tenderness Neurological exam: Present: alert, oriented X3, CN II-XII intact. Absent: motor sensory deficit Psychiatric exam: Present: normal affect, normal mood Skin exam: Present: warm, dry, intact. Absent: cyanosis, diaphoretic Course Vital Signs 10/25/20 10/25/20 16:40 16:57 Temperature 98.0 F Pulse Rate 67 176 H Respiratory 18 Rate Blood Pressure 116/72 O2 Sat by Pulse 96 Oximetry EKG Findings - EKG Comments: EKG Findings:: EKG: Atrial fibrillation with RVR, rate of 169, QRS duration 80, QTc 462, no ST segment elevation Medical Decision Making - Medical Decision Making 45-year-old male with A. fib with RVR, left neck and arm pain. No central chest pain. EKG showing atrial fibrillation with a rate of 169. Patient is started on Cardizem. Given fluid bolus. Heart rate is down trending while in the emergency department. He has a normal CBC, normal CMP. He has a minimally elevated troponin at 0.046 suspect this is from demand ischemia. This level will be trended. Chest x-ray negative for acute cardiopulmonary disease. [facility] - Lab Data Result diagrams: 10/25/20 17:06 10/25/20 17:06 Lab Results 10/25/20 10/25/20 10/25/20 Range/Units 17:06 17:06 17:06 WBC 7.6 (3.8-10.6) k/uL RBC 5.42 (4.30-5.90) m/uL Hgb 16.1 (13.0-17.5) gm/dL Hct 47.5 (39.0-53.0) % MCV 87.6 (80.0-100.0) fL MCH 29.8 (25.0-35.0) pg MCHC 34.0 (31.0-37.0) g/dL RDW 12.8 (11.5-15.5) % Plt Count 289 (150-450) k/uL MPV 6.9 Neutrophils % 64 % Lymphocytes % 22 % Monocytes % 8 % Eosinophils % 4 % Basophils % 1 % Neutrophils # 4.9 (1.3-7.7) k/uL Lymphocytes # 1.7 (1.0-4.8) k/uL Monocytes # 0.6 (0-1.0) k/uL Eosinophils # 0.3 (0-0.7) k/uL Basophils # 0.0 (0-0.2) k/uL PT 10.5 (9.0-12.0) sec INR 1.0 (<1.2) APTT 27.3 (22.0-30.0) sec Sodium 144 (137-145) mmol/L Potassium 4.3 (3.5-5.1) mmol/L Chloride 108 H (98-107) mmol/L Carbon Dioxide 27 (22-30) mmol/L Anion Gap 9 mmol/L BUN 14 (9-20) mg/dL Creatinine 1.20 (0.66-1.25) mg/dL Est GFR (CKD-EPI)AfAm 84 (>60 ml/min/1.73 sqM) Est GFR (CKD-EPI)NonAf 73 (>60 ml/min/1.73 sqM) Glucose 119 H (74-99) mg/dL Calcium 9.7 (8.4-10.2) mg/dL Magnesium 2.3 (1.6-2.3) mg/dL Total Bilirubin 0.3 (0.2-1.3) mg/dL AST 29 (17-59) U/L ALT 40 (4-49) U/L Alkaline Phosphatase 85 (38-126) U/L Troponin I (0.000-0.034) ng/mL Total Protein 7.3 (6.3-8.2) g/dL Albumin 4.8 (3.5-5.0) g/dL 10/25/20 Range/Units 17:06 WBC (3.8-10.6) k/uL RBC (4.30-5.90) m/uL Hgb (13.0-17.5) gm/dL Hct (39.0-53.0) % MCV (80.0-100.0) fL MCH (25.0-35.0) pg MCHC (31.0-37.0) g/dL RDW (11.5-15.5) % Plt Count (150-450) k/uL MPV Neutrophils % % Lymphocytes % % Monocytes % % Eosinophils % % Basophils % % Neutrophils # (1.3-7.7) k/uL Lymphocytes # (1.0-4.8) k/uL Monocytes # (0-1.0) k/uL Eosinophils # (0-0.7) k/uL Basophils # (0-0.2) k/uL PT (9.0-12.0) sec INR (<1.2) APTT (22.0-30.0) sec Sodium (137-145) mmol/L Potassium (3.5-5.1) mmol/L Chloride (98-107) mmol/L Carbon Dioxide (22-30) mmol/L Anion Gap mmol/L BUN (9-20) mg/dL Creatinine (0.66-1.25) mg/dL Est GFR (CKD-EPI)AfAm (>60 ml/min/1.73 sqM) Est GFR (CKD-EPI)NonAf (>60 ml/min/1.73 sqM) Glucose (74-99) mg/dL Calcium (8.4-10.2) mg/dL Magnesium (1.6-2.3) mg/dL Total Bilirubin (0.2-1.3) mg/dL AST (17-59) U/L ALT (4-49) U/L Alkaline Phosphatase (38-126) U/L Troponin I 0.046 H* (0.000-0.034) ng/mL Total Protein (6.3-8.2) g/dL Albumin (3.5-5.0) g/dL Critical Care Time Critical Care Time: Yes Total Critical Care Time: 35 Disposition Clinical Impression: Atrial fibrillation with RVR Disposition: ADMITTED IP TO THIS HOSP Condition: Stable Is patient prescribed a controlled substance at d/c from ED?: No Referrals: Judy Garcia MD [Primary Care Provider] - 1-2 days Decision to Admit Reason: Admit from EC Decision Date: 10/25/20 Decision Time: 18:20
[2020-10-25] MEDS: SODIUM CHLORIDE 0.9% 1,000 ML IV SCH (21:18)
[2020-10-25] MEDS ORDERED: METOPROLOL TARTRATE 25 MG TAB PO SCH (22:45)
[2020-10-25] MEDS: APIXABAN 5 MG TAB PO SCH (23:05)
[2020-10-26 08:56] VITALS: RESP 16
[2020-10-26] MEDS: SODIUM CHLORIDE 0.9% 1,000 ML IV SCH ×2 (09:06→20:16)
[2020-10-26] MEDS: APIXABAN 5 MG TAB PO SCH ×2 (09:09→20:13)
[2020-10-26] MEDS: METOPROLOL TARTRATE 50 MG TAB PO SCH ×2 (09:10→20:13)
[2020-10-26] MEDS ORDERED: NITROGLYCERIN OINT 1 INCH/GM PACKET TOPICAL SCH (12:00)
--- NOTE | 2020-10-26 12:33 | P.CRDCN ---
History of Present Illness Consult date: 10/26/20 History of present illness: HISTORY OF PRESENT ILLNESS: This is a 45-year-old male with a past medical history significant for paroxysmal atrial fibrillation, hyperlipidemia, hypertension, hypothyroidism, and sleep apnea. Patient also reports a family history of coronary artery disease and states his dad had a heart attack in his 60s. Patient follows in the office with Dr. Carvajal. We have been asked to see the patient in consultation for atrial fibrillation with RVR. Patient examined at the bedside. Patient was diagnosed with atrial fibrillation in August 2019. He was placed on metoprolol and Eliquis at that time. Patient states he has not followed up in the cardiology office since that time due to Covid. Patient states he received his second dose of his colon vaccine yesterday. He states he was at home and was going up and down the stairs when he began feeling palpitations. He also reports feeling some left arm discomfort and pain into the back of his neck. He denies any chest pain or pressure. He currently denies shortness of breath. Upon presentation to the emergency room, patient was found to be in A. fib with RVR. He was started on IV Cardizem. EKG reveals A. fib with RVR Chest xray negative for acute process Laboratory data: WBC 7.6. Hemoglobin 16.1. Platelet count 289. Sodium 144. Potassium 4.3. BUN 14. Creatinine 1.20. Magnesium 2.3. Troponin 0.046. 0.579. 0.690. 0.323 Current home cardiac medications include metoprolol tartrate 25 mg 3 times a day, Lipitor 20 mg daily, and Eliquis 5 mg twice a day Most recent echocardiogram obtained in August 2019 revealed ejection fraction 55- 60% REVIEW OF SYSTEMS: At the time of my exam: CONSTITUTIONAL: Denies fever or chills. HEENT: Denies blurred vision, vision changes, or eye pain. Denies hemoptysis CARDIOVASCULAR: Denies chest pain. Denies orthopnea. Denies PND. Denies palpitations RESPIRATORY: Denies shortness of breath. GASTROINTESTINAL: Denies abdominal pain. Denies nausea or vomiting. HEMATOLOGIC: Denies bleeding disorders. GENITOURINARY: Denies any blood in urine. SKIN: Denies pruitis. Denies rash. PHYSICAL EXAM: VITAL SIGNS: Reviewed. GENERAL: Well-developed in no acute distress. HEENT: Head is normocephalic. Pupils are equal, round. Sclerae anicteric. Mucous membranes of the mouth are moist. Neck supple. No JVD or thyromegaly LUNGS: Respirations even and unlabored. Lungs essentially clear to auscultation bilaterally. HEART: Tachycardic. Irregular rate and rhythm. S1 and S2 heard. ABDOMEN: Soft. Nondistended. Nontender. EXTREMITIES: Normal range of motion. No clubbing or cyanosis. Peripheral pulses intact. No lower extremity edema NEUROLOGIC: Awake and alert. Oriented x 3. ASSESSMENT: Paroxysmal atrial fibrillation with RVR, on anticoagulation with Eliquis Abnormal troponins, likely secondary to above Hypertension Hyperlipidemia Family history of coronary artery disease PLAN: Obtain 2-D echo to assess cardiac structure and function Increase metoprolol to 50 mg twice a day Wean off Cardizem drip as tolerated Continue Eliquis 5 mg twice a day Continue telemetry monitoring Further recommendations pending patient's course Nurse practitioner note has been reviewed by physician. Signing provider agrees with the documented findings, assessment, and plan of care. Past Medical History Past Medical History: Hyperlipidemia, Hypertension, Sleep Apnea/CPAP/BIPAP, Thyroid Disorder Additional Past Medical History / Comment(s): Afib History of Any Multi-Drug Resistant Organisms: None Reported Past Surgical History: Hernia Repair Past Anesthesia/Blood Transfusion Reactions: No Reported Reaction, Postoperative Nausea & Vomiting (PONV) Additional Past Anesthesia/Blood Transfusion Reaction / Comment(s): . Past Psychological History: No Psychological Hx Reported Smoking Status: Never smoker Past Alcohol Use History: None Reported Past Drug Use History: None Reported - Past Family History Father Family Medical History: Coronary Artery Disease (CAD), Diabetes Mellitus Additional Family Medical History / Comment(s): cabg Medications and Allergies Home Medications Medication Instructions Recorded Confirmed Type Triamcinolone 0.1% Cream [Kenalog 1 applic TOPICAL BID PRN 08/12/19 10/25/20 History 0.1% Cream] Apixaban [Eliquis] 5 mg PO BID #60 tab 08/13/19 10/25/20 Rx Metoprolol Tartrate [Lopressor] 25 mg PO BID #60 tab 08/13/19 10/25/20 Rx Atorvastatin Calcium [Lipitor] 20 mg PO HS 10/25/20 10/25/20 History Cholecalciferol [Vitamin D3 (25 50 mcg PO DAILY 10/25/20 10/25/20 History Mcg = 1000 Iu)] Inulin/Chromium Picolinate [Fiber 2 tab PO DAILY 10/25/20 10/25/20 History Gummies Chew] Allergies Allergy/AdvReac Type Severity Reaction Status Date / Time No Known Allergies Allergy Verified 10/25/20 18:42 Physical Exam Vitals: Vital Signs Temp Pulse Pulse Resp BP BP Pulse Ox 10/26/20 12:00 90 16 100/69 100 10/26/20 08:00 97.8 F 94 16 114/73 97 10/26/20 04:00 61 18 100/70 99 10/26/20 02:00 115 H 18 10/25/20 22:35 98.6 F 115 H 18 128/72 97 10/25/20 21:20 98.1 F 99 18 110/92 98 10/25/20 20:44 98.0 F 114 H 16 114/78 99 10/25/20 19:04 135 H 17 108/79 98 10/25/20 16:57 176 H 10/25/20 16:40 98.0 F 67 18 116/72 96 Intake and Output 10/25/20 10/26/20 10/26/20 22:59 06:59 14:59 Intake Total 75 240 Output Total 180 1700 Balance 75 -180 -1460 Intake: Intake, IV Titration 75 Amount Sodium Chloride 0.9% 1, 75 000 ml @ 75 mls/hr IV . [id number] [facility] Rx#:[id number] Oral 240 Output: Urine 180 1700 Other: Weight 86.183 kg 92.7 kg Results 10/25/20 17:06 10/25/20 17:06 Cardiac Enzymes 10/25/20 10/25/20 10/25/20 Range/Units 17:06 17:06 21:31 AST 29 (17-59) U/L Troponin I 0.046 H* 0.579 H* (0.000-0.034) ng/mL 10/26/20 10/26/20 Range/Units 00:47 10:38 AST (17-59) U/L Troponin I 0.690 H* 0.323 H* (0.000-0.034) ng/mL Coagulation 10/25/20 Range/Units 17:06 PT 10.5 (9.0-12.0) sec APTT 27.3 (22.0-30.0) sec CBC 10/25/20 Range/Units 17:06 WBC 7.6 (3.8-10.6) k/uL RBC 5.42 (4.30-5.90) m/uL Hgb 16.1 (13.0-17.5) gm/dL Hct 47.5 (39.0-53.0) % Plt Count 289 (150-450) k/uL Comprehensive Metabolic Panel 10/25/20 Range/Units 17:06 Sodium 144 (137-145) mmol/L Potassium 4.3 (3.5-5.1) mmol/L Chloride 108 H (98-107) mmol/L Carbon Dioxide 27 (22-30) mmol/L BUN 14 (9-20) mg/dL Creatinine 1.20 (0.66-1.25) mg/dL Glucose 119 H (74-99) mg/dL Calcium 9.7 (8.4-10.2) mg/dL AST 29 (17-59) U/L ALT 40 (4-49) U/L Alkaline Phosphatase 85 (38-126) U/L Total Protein 7.3 (6.3-8.2) g/dL Albumin 4.8 (3.5-5.0) g/dL Current Medications Generic Name Dose Route Start Last Admin Trade Name Freq PRN Reason Stop Dose Admin Acetaminophen 650 mg 10/25/20 18:15 Acetaminophen Tab 325 Mg Tab PO Q6HR PRN Mild Pain or Fever > 100.5 Apixaban 5 mg 10/25/20 22:45 10/26/20 09:09 Apixaban 5 Mg Tab PO 5 mg BID MARÍA Administration Diltiazem HCl 125 mg/ Sodium 125 mls @ 5 mls/hr 10/25/20 17:30 10/25/20 17:54 Chloride IV 5 mg/hr .Q24H MARÍA 5 mls/hr Administration 5 MG/HR Sodium Chloride 1,000 mls @ 75 mls/hr 10/25/20 18:15 10/26/20 09:06 Saline 0.9% IV 75 mls/hr .[id number] MARÍA Administration Metoprolol Tartrate 50 mg 10/26/20 09:00 10/26/20 09:10 Metoprolol Tartrate 50 Mg Tab PO 50 mg BID MARÍA Administration Naloxone HCl 0.2 mg 10/25/20 18:15 Naloxone 0.4 Mg/Ml 1 Ml Vial IV Q2M PRN Opioid Reversal Nitroglycerin 0.5 inch 10/26/20 12:00 10/26/20 12:17 Nitroglycerin Oint 1 Inch/Gm Packet TOPICAL 0.5 inch Q6HR MARÍA Administration Intake and Output 10/25/20 10/26/20 10/26/20 22:59 06:59 14:59 Intake Total 75 240 Output Total 180 1700 Balance 75 -180 -1460 Intake: Intake, IV Titration 75 Amount Sodium Chloride 0.9% 1, 75 000 ml @ 75 mls/hr IV . [id number] [facility] Rx#:[id number] Oral 240 Output: Urine 180 1700 Other: Weight 86.183 kg 92.7 kg 10/25/20 17:06 10/25/20 17:06
--- NOTE | 2020-10-26 13:03 | P.HPIM ---
History of Present Illness Patient is a pleasant 45-year-old male came in with the comments of palpitation found to be in atrial fibrillation with rapid ventricular rate patient has known A. fib patient had normal ejection fraction the past patient uses metoprolol and Eliquis. Patient is presently on Cardizem drip. Patient denied any fever chills patient doesn't have any evidence of sepsis or dehydration. Patient is presently on the 5 mg/h of Cardizem which is being weaned of metoprolol dose was increased to 50 mg twice a day. Patient feels better now as his heart rate is better controlled patient will be monitored overnight. Review of Systems REVIEW OF SYSTEMS: CONSTITUTIONAL: No fever, no malaise, no fatigue. HEENT: No recent visual problems or hearing problems. Denied any sore throat. CARDIOVASCULAR: No chest pain, orthopnea, PND, no syncope. PULMONARY: No shortness of breath, no cough, no hemoptysis. GASTROINTESTINAL: No diarrhea, no nausea, no vomiting, no abdominal pain. NEUROLOGICAL: No headaches, no weakness, no numbness. HEMATOLOGICAL: Denies any bleeding or petechiae. GENITOURINARY: Denies any burning micturition, frequency, or urgency. MUSCULOSKELETAL/RHEUMATOLOGICAL: Denies any joint pain, swelling, or any muscle pain. ENDOCRINE: Denies any polyuria or polydipsia. The rest of the 14-point review of systems is negative. Past Medical History Past Medical History: Hyperlipidemia, Hypertension, Sleep Apnea/CPAP/BIPAP, Thyroid Disorder Additional Past Medical History / Comment(s): Afib History of Any Multi-Drug Resistant Organisms: None Reported Past Surgical History: Hernia Repair Past Anesthesia/Blood Transfusion Reactions: No Reported Reaction, Postoperative Nausea & Vomiting (PONV) Additional Past Anesthesia/Blood Transfusion Reaction / Comment(s): . Past Psychological History: No Psychological Hx Reported Smoking Status: Never smoker Past Alcohol Use History: None Reported Past Drug Use History: None Reported - Past Family History Father Family Medical History: Coronary Artery Disease (CAD), Diabetes Mellitus Additional Family Medical History / Comment(s): cabg Medications and Allergies Home Medications Medication Instructions Recorded Confirmed Type Triamcinolone 0.1% Cream [Kenalog 1 applic TOPICAL BID PRN 08/12/19 10/25/20 History 0.1% Cream] Apixaban [Eliquis] 5 mg PO BID #60 tab 08/13/19 10/25/20 Rx Metoprolol Tartrate [Lopressor] 25 mg PO BID #60 tab 08/13/19 10/25/20 Rx Atorvastatin Calcium [Lipitor] 20 mg PO HS 10/25/20 10/25/20 History Cholecalciferol [Vitamin D3 (25 50 mcg PO DAILY 10/25/20 10/25/20 History Mcg = 1000 Iu)] Inulin/Chromium Picolinate [Fiber 2 tab PO DAILY 10/25/20 10/25/20 History Gummies Chew] Allergies Allergy/AdvReac Type Severity Reaction Status Date / Time No Known Allergies Allergy Verified 10/25/20 18:42 Physical Exam Vitals: Vital Signs Temp Pulse Pulse Resp BP BP Pulse Ox 10/26/20 12:00 90 16 100/69 100 10/26/20 08:00 97.8 F 94 16 114/73 97 10/26/20 04:00 61 18 100/70 99 10/26/20 02:00 115 H 18 10/25/20 22:35 98.6 F 115 H 18 128/72 97 10/25/20 21:20 98.1 F 99 18 110/92 98 10/25/20 20:44 98.0 F 114 H 16 114/78 99 10/25/20 19:04 135 H 17 108/79 98 10/25/20 16:57 176 H 10/25/20 16:40 98.0 F 67 18 116/72 96 Intake and Output 10/25/20 10/26/20 10/26/20 22:59 06:59 14:59 Intake Total 75 240 Output Total 180 1700 Balance 75 -180 -1460 Intake: Intake, IV Titration 75 Amount Sodium Chloride 0.9% 1, 75 000 ml @ 75 mls/hr IV . [id number] [facility] Rx#:[id number] Oral 240 Output: Urine 180 1700 Other: Weight 86.183 kg 92.7 kg PHYSICAL EXAMINATION: GENERAL: The patient is alert and oriented x3, not in any acute distress. Well developed, well nourished. HEENT: Pupils are round and equally reacting to light. EOMI. No scleral icterus. No conjunctival pallor. Normocephalic, atraumatic. No pharyngeal erythema. No thyromegaly. CARDIOVASCULAR: S1 and S2 present. No murmurs, rubs, or gallops. Irregularly irregular rhythm PULMONARY: Chest is clear to auscultation, no wheezing or crackles. ABDOMEN: Soft, nontender, nondistended, normoactive bowel sounds. No palpable organomegaly. MUSCULOSKELETAL: No joint swelling or deformity. EXTREMITIES: No cyanosis, clubbing, or pedal edema. NEUROLOGICAL: Gross neurological examination did not reveal any focal deficits. SKIN: No rashes. Results CBC & Chem 7: 10/25/20 17:06 10/25/20 17:06 Labs: Abnormal Lab Results - Last 24 Hours (Table) 10/25/20 10/25/20 10/25/20 Range/Units 17:06 17:06 21:31 Chloride 108 H (98-107) mmol/L Glucose 119 H (74-99) mg/dL Troponin I 0.046 H* 0.579 H* (0.000-0.034) ng/mL 10/26/20 10/26/20 Range/Units 00:47 10:38 Chloride (98-107) mmol/L Glucose (74-99) mg/dL Troponin I 0.690 H* 0.323 H* (0.000-0.034) ng/mL Thrombosis Risk Factor Assmnt - Choose All That Apply Each Factor Represents 1 point: Abnormal pulmonary function (COPD) Other Risk Factors: No Other congenital or acquired thrombophilia - If yes, enter type in comment: No Thrombosis Risk Factor Assessment Total Risk Factor Score: 1 Thrombosis Risk Factor Assessment Level: Low Risk Assessment and Plan Plan: Atrial fibrillation with rapid ventricular rate: Patient is better rate controlled on weaning off on Cardizem present dose of metoprolol continue with Eliquis possibility of discharge tomorrow depending on his clinical condition. -Mildly elevated troponin secondary to atrial fibrillation - - hypertension -hyperlipidemia -
[2020-10-27] MEDS: SODIUM CHLORIDE 0.9% 1,000 ML IV SCH (08:48)
[2020-10-27] MEDS: METOPROLOL TARTRATE 50 MG TAB PO SCH (08:49)
[2020-10-27] MEDS: APIXABAN 5 MG TAB PO SCH (08:49)
--- NOTE | 2020-10-27 08:49 | ECHOF ---
Referral Reason:LV function, chest pain MEASUREMENTS -------- HEIGHT: 167.6 cm WEIGHT: 92.5 kg BP: RVIDd: 3.8 cm (< 3.3) IVSd: 1.6 cm (0.6 - 1.1) LVIDd: 3.9 cm (3.9 - 5.3) LVPWd: 1.3 cm (0.6 - 1.1) IVSs: 1.6 cm LVIDs: 2.8 cm LVPWs: 2.2 cm LAESV Index (A-L): 24.98 ml/m Ao Diam: 3.5 cm (2.0 - 3.7) AV Cusp: 2.2 cm (1.5 - 2.6) LA Diam: 3.8 cm (2.7 - 3.8) MV EXCURSION: 20.180 mm (> 18.000) MV EF SLOPE: 121 mm/s (70 - 150) EPSS: 0.2 cm MV E Forrest: 0.83 m/s MV DecT: 159 ms MV A Forrest: 0.48 m/s MV E/A Ratio: 1.73 RAP: 5.00 mmHg RVSP: 22.67 mmHg FINDINGS -------- Sinus rhythm. This was a technically adequate study. The left ventricular size is normal. There is moderate concentric left ventricular hypertrophy. O verall left ventricular systolic function is normal with, an EF between 55 - 60 %. The diastolic fi lling pattern is normal for the age of the patient 6.52. The right ventricle is mild to moderately enlarged. Normal LA size by volume 22+/-6 ml/m2. The right atrial size is normal. Interatrial and interventricular septum intact. The aortic valve is trileaflet and appears structurally normal. There is no evidence of aortic regu rgitation. There is no evidence of aortic stenosis. Atya-pe-gqocmttn mitral regurgitation is present. Mild tricuspid regurgitation present. There is no evidence of pulmonary hypertension. The right v entricular systolic pressure, as measured by Doppler, is 22.67mmHg. There is no pulmonic regurgitation present. The aortic root size is normal. IVC Not well visulized. There is no pericardial effusion. CONCLUSIONS -------- 1. The left ventricular size is normal. 2. There is moderate concentric left ventricular hypertrophy. 3. Overall left ventricular systolic function is normal with, an EF between 55 - 60 %. 4. The diastolic filling pattern is normal for the age of the patient 6.52 5. The right ventricle is mild to moderately enlarged. 6. Iyqq-sk-angmtaxh mitral regurgitation is present. 7. Mild tricuspid regurgitation present. DEPARTMENT OF SOCIOLOGY CHAIR: Deysi Ro RDCS
--- NOTE | 2020-10-27 11:11 | P.PN ---
Subjective Progress Note Date: 10/27/20 HISTORY OF PRESENT ILLNESS: This is a 45-year-old male with a past medical history significant for paroxysmal atrial fibrillation, hyperlipidemia, hypertension, hypothyroidism, and sleep apnea. Patient also reports a family history of coronary artery disease and states his dad had a heart attack in his 60s. Patient follows in the office with Dr. Carvajal. We have been asked to see the patient in consultation for atrial fibrillation with RVR. Patient examined at the bedside. Patient was diagnosed with atrial fibrillation in August 2019. He was placed on metoprolol and Eliquis at that time. Patient states he has not followed up in the cardiology office since that time due to Covid. Patient states he received his second dose of his colon vaccine yesterday. He states he was at home and was going up and down the stairs when he began feeling palpitations. He also reports feeling some left arm discomfort and pain into the back of his neck. He denies any chest pain or pressure. He currently denies shortness of breath. Upon presentation to the emergency room, patient was found to be in A. fib with RVR. He was started on IV Cardizem. EKG reveals A. fib with RVR Chest xray negative for acute process Laboratory data: WBC 7.6. Hemoglobin 16.1. Platelet count 289. Sodium 144. Potassium 4.3. BUN 14. Creatinine 1.20. Magnesium 2.3. Troponin 0.046. 0.579. 0.690. 0.323 Current home cardiac medications include metoprolol tartrate 25 mg 3 times a day, Lipitor 20 mg daily, and Eliquis 5 mg twice a day Most recent echocardiogram obtained in August 2019 revealed ejection fraction 55- 60% 10/27/2020 Patient examined this morning at the bedside. Patient denies chest pain or pressure. He denies shortness of breath. Patient has converted to sinus mechanism. His Cardizem drip has been weaned off. Echocardiogram completed revealed ejection fraction 55-60%, mild to moderate mitral regurgitation, and mild tricuspid regurgitation. Vital signs are stable. PHYSICAL EXAM: VITAL SIGNS: Reviewed. GENERAL: Well-developed in no acute distress. HEENT: Head is normocephalic. Pupils are equal, round. Sclerae anicteric. Mucous membranes of the mouth are moist. Neck supple. No JVD or thyromegaly LUNGS: Respirations even and unlabored. Lungs essentially clear to auscultation bilaterally. HEART: Regular rate and rhythm. S1 and S2 heard. ABDOMEN: Soft. Nondistended. Nontender. EXTREMITIES: Normal range of motion. No clubbing or cyanosis. Peripheral pulses intact. No lower extremity edema NEUROLOGIC: Awake and alert. Oriented x 3. ASSESSMENT: Paroxysmal atrial fibrillation with RVR, on anticoagulation with Eliquis Abnormal troponins, likely secondary to above Hypertension Hyperlipidemia Family history of coronary artery disease PLAN: Continue current cardiac medications Patient is stable for discharge home today from a cardiac standpoint Patient to follow up outpatient with Dr. Carvajal Nurse practitioner note has been reviewed by physician. Signing provider agrees with the documented findings, assessment, and plan of care. Objective - Vital Signs Vital signs: Vital Signs Temp 98.2 F 10/27/20 03:35 Pulse 79 10/27/20 08:00 Resp 16 10/27/20 08:00 BP 138/86 10/27/20 08:00 Pulse Ox 96 10/27/20 08:00 Intake & Output 10/26/20 10/27/20 10/27/20 18:59 06:59 18:59 Intake Total 480 10 360 Output Total 1700 1100 Balance -1220 -1090 360 Weight 92.5 kg Intake: IV 10 Invasive Line 2 10 Oral 480 360 Output: Urine 1700 1100 Other: Voiding Method Toilet Toilet # Voids 1 - Labs CBC & Chem 7: 10/25/20 17:06 10/25/20 17:06 Labs: Abnormal Lab Results - Last 24 Hours (Table) 10/26/20 Range/Units 10:38 Troponin I 0.323 H* (0.000-0.034) ng/mL
[2020-10-27 12:41] VITALS: BP 143/94; PULSE 68; TEMP 98
--- NOTE | 2020-10-27 14:43 | P.DS ---
Providers Date of admission: 10/25/20 18:15 Attending physician: Gricelda Perales Consults: 10/25/20 18:16 Consult Physician Routine Consulting Provider: Dorys Carvajal Consult Reason/Comments: A-fib with RVR Do you want consulting provider notified?: Yes Primary care physician: uJdy Garcia [facility] Course: Patient is a pleasant 45-year-old male came in with the comments of palpitation found to be in atrial fibrillation with rapid ventricular rate patient has known A. fib patient had normal ejection fraction the past patient uses metoprolol and Eliquis. Patient is presently on Cardizem drip. Patient denied any fever chills patient doesn't have any evidence of sepsis or dehydration. Patient is presently on the 5 mg/h of Cardizem which is being weaned of metoprolol dose was increased to 50 mg twice a day. Patient feels better now as his heart rate is better controlled patient will be monitored overnight. 10/27/2020 Patient seen on reevaluation is currently sinus mechanism heart rate in 60s, 2-D echocardiogram showing LVEF 55-60%, mild to moderate MR, RVSP 22 mmHg. Hemodynamically stable. No chest pain or palpitation. Review of Systems REVIEW OF SYSTEMS: CONSTITUTIONAL: No fever, no malaise, no fatigue. HEENT: No recent visual problems or hearing problems. Denied any sore throat. CARDIOVASCULAR: No chest pain, orthopnea, PND, no syncope. PULMONARY: No shortness of breath, no cough, no hemoptysis. GASTROINTESTINAL: No diarrhea, no nausea, no vomiting, no abdominal pain. GENERAL: The patient is alert and oriented x3, not in any acute distress. Well developed, well nourished. HEENT: Pupils are round and equally reacting to light. EOMI. No scleral icterus. No conjunctival pallor. Normocephalic, atraumatic. No pharyngeal erythema. No thyromegaly. CARDIOVASCULAR: S1 and S2 present. No murmurs, rubs, or gallops. Regular PULMONARY: Chest is clear to auscultation, no wheezing or crackles. ABDOMEN: Soft, nontender, nondistended, normoactive bowel sounds. No palpable organomegaly. MUSCULOSKELETAL: No joint swelling or deformity. EXTREMITIES: No cyanosis, clubbing, or pedal edema. NEUROLOGICAL: Gross neurological examination did not reveal any focal deficits. SKIN: No rashes. Atrial fibrillation with rapid ventricular rate: Currently sinus mechanism. Off of IV Cardizem, metoprolol has been increased to 50 twice daily which she will continue on at discharge along with Eliquis. 2-D echocardiogram showing preserved LVEF 55-60%, [id number] MR, RVSP 22 mmHg. -Mildly elevated troponin secondary to atrial fibrillation - - hypertension -hyperlipidemia - follow-up with environmental services project manager Dr. Carvajal and PCP outpatient. Patient Condition at Discharge: Stable Plan - Discharge Summary Discharge Rx Participant: No New Discharge Prescriptions: New Metoprolol Tartrate [Lopressor] 50 mg PO BID #60 tab Continue Triamcinolone 0.1% Cream [Kenalog 0.1% Cream] 1 applic TOPICAL BID PRN PRN Reason: rash on face Apixaban [Eliquis] 5 mg PO BID #60 tab Atorvastatin Calcium [Lipitor] 20 mg PO HS Inulin/Chromium Picolinate [Fiber Gummies Chew] 2 tab PO DAILY Cholecalciferol [Vitamin D3 (25 Mcg = 1000 Iu)] 50 mcg PO DAILY Discontinued Metoprolol Tartrate [Lopressor] 25 mg PO BID #60 tab Discharge Medication List Triamcinolone 0.1% Cream [Kenalog 0.1% Cream] 1 applic TOPICAL BID PRN 08/12/19 [History] Apixaban [Eliquis] 5 mg PO BID #60 tab 08/13/19 [Rx] Atorvastatin Calcium [Lipitor] 20 mg PO HS 10/25/20 [History] Cholecalciferol [Vitamin D3 (25 Mcg = 1000 Iu)] 50 mcg PO DAILY 10/25/20 [History] Inulin/Chromium Picolinate [Fiber Gummies Chew] 2 tab PO DAILY 10/25/20 [History] Metoprolol Tartrate [Lopressor] 50 mg PO BID #60 tab 10/27/20 [Rx] Follow up Appointment(s)/Referral(s): Judy Garcia MD [Primary Care Provider] - 3 Days Patient Instructions/Handouts: A-fib (Atrial Fibrillation) (DC) Discharge Disposition: HOME SELF-CARE
== END 2020-10-27 14:31 | disposition home or self-care (01) | DRG 310 ==
LOC: EC 15:35 → 3SCARD 18:15
PROVIDERS: ADMIT Hospitalist; ATTEND Hospitalist
DX: I48.0 Paroxysmal atrial fibrillation (principal); E03.9 Hypothyroidism, unspecified; Z20.822 Contact with and (suspected) exposure to COVID-19; E78.5 Hyperlipidemia, unspecified; I10 Essential (primary) hypertension; G47.30 Sleep apnea, unspecified; M54.2 Cervicalgia; M79.602 Pain in left arm; R77.8 Other specified abnormalities of plasma proteins; Z79.01 Long term (current) use of anticoagulants; Z79.899 Other long term (current) drug therapy; Z98.890 Other specified postprocedural states; Z87.19 Personal history of other diseases of the digestive system; Z82.49 Family history of ischemic heart disease and other diseases of the circulatory system; Z83.3 Family history of diabetes mellitus
CPT/HCPCS: 36415; 71046; 80053; 83735; 84484; 85025; 85610; 85730; 87635; 93005; 93306; 96361; 96365; 96375; 99291